=== PATIENT | male | born 1995 | race Caucasian/White ===

== ENCOUNTER 2017-01-23 20:08 | Emergency (ER) | payer BC ==
[~2017-01-23] VITALS: Ht 185.4 cm; Wt 106.4 kg
[2017-01-23 20:13] VITALS: BP 161/71; TEMP 36.5; Ht 185.4 cm; Wt 106.4 kg
--- NOTE | 2017-01-23 21:11 | DIAGNOSTIC IMAGING REPORT ---
RIGHT FIFTH TOE 3 VIEWS HISTORY: R 5th toe pain/deformity Right COMPARISON: None. FINDINGS: Transverse fracture through the proximal shaft of the proximal phalanx of the right fifth toe which demonstrates mild lateral angulation. No dislocation. Soft tissue swelling within the right fifth toe. No radiopaque foreign bodies. IMPRESSION: Slightly angulated transverse fracture within the proximal phalanx of the right fifth toe. Electronically signed by: Rah Leblanc M.D. 01/23/2017 9:10 PM Dictated Date/Time: 01/23/2017 9:09 PM
[2017-01-23 21:52] VITALS: PULSE 65; O2SAT 100
--- NOTE | 2017-01-24 02:20 | EMERGENCY ROOM VISIT NOTE ---
ED Visit Note First contact with patient: 20:34 CHIEF COMPLAINT: Right foot pain. HISTORY OF PRESENT ILLNESS: Mr. Benítez is a 21-year old white male who ambulates into the ED accompanied by female friend complaining of right foot pain. Patient reports less than an hour ago he was walking past a friend, tripped on the friend's foot and injured his little toe. Since that time he reports she's been having a throbbing pain in the right little toe. Currently he rates his discomfort 4/10. His pain is nonradiating. His pain worsens with palpation and ambulation. He has not identified any alleviating factors related to the pain. He has not taken any medication for pain prior to arrival at the hospital. He denies any associated symptoms but does report he feels like the toe is deformed at the level of the PIP joint. He denies any other foot pain, ankle pain, foot weakness/numbness/tingling. He also denies any previous significant injuries or surgeries to the foot or the toe. REVIEW OF SYSTEMS: As noted above in History of Present Illness. PAST MEDICAL HISTORY: Unspecified ankle reconstructive surgery, status post wisdom teeth extraction. CURRENT MEDICATIONS: Patient denies. ALLERGIES TO MEDICATIONS: Patient denies. 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 PHYSICAL EXAM: Vital Signs: Date Time Temp Pulse Resp B/P Pulse Ox O2 Delivery O2 Flow Rate FiO2 01/23/17 21:52 65 18 100 Room Air 01/23/17 20:13 36.5 71 18 161/71 100 Room Air General: 21 year old male in mild distress due to pain, nontoxic-appearing, afebrile and hemodynamically stable. Neurological: Awake, alert, oriented to person place and time. Answering questions appropriately and following commands. Skin: Warm dry and pink. No soft tissue injury. Left Lower Extremity: Mild deformity of the little toe at the level of the proximal phalange with deviation laterally. No tenderness in the hip, knee or ankle. Moderate tenderness over the area just proximal to the fifth MTP joint as well as the proximal, middle and distal phalanx of the little toe. There is early ecchymosis over the medial border of the proximal phalanx between the toes. I was not able to appreciate any bony crepitus but because of his pain is examined and was difficult. Throughout the foot the skin is pink and warm with brisk capillary refill. Able to distinguish light sensations through all dermatomes of the foot. ED COURSE: Patient is assessed as noted above. Left Foot: X-Rays: Was read by myself and the radiologist and shows a slightly angulated transverse fracture within the proximal phalanx of the right fifth toe. Patient is given ice for pain, swelling and comfort; he was offered pain medication and refused. Patient is placed in a postop shoe and is instructed on crutch use. Patient is educated about his condition and instructed on his treatment plan; he verbalizes understanding and agreement with the our plan. CLINICAL IMPRESSION: Left fifth toe proximal phalanx fracture. DISPOSITION: Patient is discharged to home in stable condition accompanied by his girlfriend; prior to departure he was reassessed and subjectively reported he was feeling the same PLAN: Comfort measures were discussed with the patient. Patient was encouraged to follow-up with an orthopedic physician for specialty care and treatment. Patient was encouraged to return ED for worsening/uncontrolled pain, uncontrolled swelling or any new/concerning symptoms.
== END 2017-01-23 21:52 | disposition home or self-care (01) ==
LOC: C.EDB 20:11 → C.EDD 21:52
DX: S92.514A Nondisplaced fracture of proximal phalanx of right lesser toe(s), initial encounter for closed fracture (principal); W01.0XXA Fall on same level from slipping, tripping and stumbling without subsequent striking against object, initial encounter